=== PATIENT | male | born 1965 | race Caucasian/White ===

== ENCOUNTER 2017-01-02 20:43 | Emergency (ER) | payer BC ==
[~2017-01-02] VITALS: Ht 172.7 cm; Wt 77.1 kg
--- NOTE | ~2017-01-02 | CR94 ---
[facility] A Service of [facility] RADIOLOGY TEXT RESULTS PATIENT: ANGIE BARROSO LOCATION: [facility] : 67 UNIT #: [id number] AGE: [address]: Jesus Peters MD SEX: M ORDER DR: [id number] [facility] [address] [place], [place] [address] [id number] MR#: [id number] Acc #: [id number] NAME: ANGIE BARROSO : 1965 SEX: M STUDY DATE/TIME: 01/02/2017 23:05 UNIT: [facility] ROOM: STUDY DESCRIPTION: CR Elbow Min 3 Views Rt Attending Physician: Jesus Peters M.D. Ordering Physician: Jesus Peters M.D. Primary Care Physician: No Primary Care Physician MEDICAL IMAGING REPORT This report is preliminary unless electronic signature is present EXAM Right elbow series INDICATION Right elbow pain and swelling for the past 2 weeks. PROCEDURE 3 views of the right elbow. COMPARISON None FINDINGS There is a thin fragment adjacent to the olecranon with what appears to be some overlying soft tissue swelling. There is no other fracture. No dislocation. IMPRESSION Suspected thin fracture fragment adjacent to the olecranon. Dictated by... Celestino Rouse M.D. THIS IS AN ELECTRONICALLY VERIFIED REPORT Celestino Rouse M.D. at 01/03/2017 9:55 PM EED/jian TD: 01/03/2017 10:58 JOB #: [id number] MEDICAL IMAGING REPORT Page 1 of 1 COPY
[~2017-01-02 20:43] MED LIST: BACTRIM DS TABL1 TA1 PO; KEFLEX PO; KEFLEX500 MG PO; LORTAB 5/500 TA1 TA1 PO; VICODIN 5/1 TAB 5/50 PO
== END 2017-01-03 00:30 | disposition home or self-care (01) ==
LOC: CED 20:43
DX: L03.113 Cellulitis of right upper limb (principal); F17.200 Nicotine dependence, unspecified, uncomplicated; Z88.1 Allergy status to other antibiotic agents; Z88.8 Allergy status to other drugs, medicaments and biological substances
CPT/HCPCS: 29260; 73080; 99283

== ENCOUNTER 2017-01-15 21:57 | Emergency (ER) | payer BC ==
[~2017-01-15] VITALS: Ht 172.7 cm; Wt 72.6 kg
--- NOTE | ~2017-01-15 | CR94 ---
[facility] A Service of [facility] RADIOLOGY TEXT RESULTS PATIENT: ANGIE BARROSO LOCATION: [facility] : 67 UNIT #: [id number] AGE: [address]: Analia Alfredo APRN SEX: M ORDER DR: [id number] [facility] [address] [place], [place] [address] [id number] MR#: [id number] Acc #: [id number] NAME: ANGIE BARROSO : 1965 SEX: M STUDY DATE/TIME: 01/16/2017 0:52 UNIT: [facility] ROOM: STUDY DESCRIPTION: CR Elbow Min 3 Views Rt Attending Physician: Analia Alfredo A.P.R.N. Ordering Physician: Analia Alfredo A.P.R.N. Primary Care Physician: Primary Care Physician No MEDICAL IMAGING REPORT This report is preliminary unless electronic signature is present EXAM Right elbow, 01/16/2017 HISTORY 51-year-old male in the ED complaining of 1-week history of persistent right elbow pain and soft tissue swelling. TECHNIQUE Three-view right elbow series. FINDINGS The examination shows marked soft tissue swelling posteriorly in the region of the olecranon bursa, and subcutaneous soft tissue edema is seen posteriorly in the distal portion of the upper arm above the elbow and in the proximal forearm. Similar findings were present on 01/02/2017. Correlate for clinical evidence of olecranon bursitis. There is a tiny osseous fragment adjacent to the cortical surface of the olecranon process of the ulna, but this may not be acute. There is no reported evidence of recent injury. There is no visible joint effusion, soft tissue gas or radiopaque soft tissue foreign body. IMPRESSION Persistent soft tissue swelling in the posterior olecranon region as noted above. No change since 01/02/2017. Dictated by... Kayode Taylor M.D. THIS IS AN ELECTRONICALLY VERIFIED REPORT Kayode Taylor M.D. at 01/16/2017 10:30 PM KIM/francisca TD: 01/16/2017 08:57 [facility] A Service of [facility] RADIOLOGY TEXT RESULTS PATIENT: ANGIE BARROSO LOCATION: [facility] : 67 UNIT #: [id number] AGE: [address]: Analia Alfredo APRN SEX: M ORDER DR: JOB #: [id number] MEDICAL IMAGING REPORT Page 1 of 1 COPY
== END 2017-01-16 01:50 | disposition home or self-care (01) ==
LOC: CED 21:57 → CFTX 21:57
DX: S52.021A Displaced fracture of olecranon process without intraarticular extension of right ulna, initial encounter for closed fracture (principal); M70.21 Olecranon bursitis, right elbow; F17.200 Nicotine dependence, unspecified, uncomplicated; Z88.1 Allergy status to other antibiotic agents; X58.XXXA Exposure to other specified factors, initial encounter
CPT/HCPCS: 73080; 99283